=== PATIENT | male | born 1995 ===

== ENCOUNTER 2020-02-23 02:13 | Emergency (ER) | payer OTHER ==
[~2020-02-23] VITALS: Ht 188 cm; Wt 78.0 kg
--- NOTE | 2020-02-23 02:30 | NUR ---
assumed care of pt. pt BIB sister for medical clearance. pt sister states that pt is unable to care for self. she reports that pt is schizophrenic and that he has been off of his meds for over 2 months. pt was living in [place] and was kicked out of his shelter or destruction of property. pt sister states that [facility] and wants him to be evaluated for mental health placement. pt is alert and oriented. know the day and date. is cooperative. pt has a hx of visual and auditory hallucinations, but denies having them at thei time. however pt is talking and laughing to himself intermittently. pt has numerous scabs on both hands and forearms, and states that he has a hx of cutting. pt denies being actively suicidal at this time but admits to previous SI. pt is ambulatory and in no apparent resp distress. denies any other injuries
--- NOTE | 2020-02-23 02:50 | NUR ---
pt ambulated to BR for urine sample
--- NOTE | 2020-02-23 03:00 | NUR ---
lab at bedside to draw
[2020-02-23 03:13] LABS: MICROSCOPIC NOT IND
[2020-02-23 03:20] LABS: BASOPHILS # (AUTO) 0.03 x10^3/uL (0-0.1); BASOPHILS % (AUTO) 0 % (0-1); EOSINOPHILS # (AUTO) 0.26 x10^3/uL (0-0.4); EOSINOPHILS % (AUTO) 3 % (1-7); LYMPHOCYTES # (AUTO) 2.57 x10^3/uL (1-3.4); LYMPHOCYTES % (AUTO) 25 % (22-44); MD NO; MEAN CORPUSCULAR HEMOGLOBIN 30.9 pg (27.5-34.5); MEAN CORPUSCULAR HGB CONC 33.1 g/dL (33.2-36.2); MEAN CORPUSCULAR VOLUME 93.4 fL (81-97); MEAN PLATELET VOLUME 8.5 fL (7.4-10.4); MONOCYTES # (AUTO) 0.76 x10^3/uL (0.2-0.8); MONOCYTES % (AUTO) 8 % (2-9); NEUTROPHILS # (AUTO) 6.56 x10^3/uL (1.8-6.8); NEUTROPHILS % (AUTO) 65 % (42-75); PLATELET COUNT 239 x10^3/uL (130-400); RED BLOOD COUNT 4.53 x10^6/uL (4.38-5.82); RED CELL DISTRIBUTION WIDTH 13.6 % (9.4-14.8)
[2020-02-23 03:24] LABS: AMPHETAMINE SCREEN, URINE Negative (Negative); BARBITURATE SCREEN, URINE Negative (Negative); BENZODIAZEPINE SCREEN, URINE Negative (Negative); CANNABINOID SCREEN, URINE Negative (Negative); COCAINE SCREEN, URINE Negative (Negative); METHADONE SCREEN, URINE Negative (Negative); OPIATE SCREEN, URINE Negative (Negative)
--- NOTE | 2020-02-23 03:30 | NUR ---
per Norma WILLETT, pt to be placed on a hold for inability to care for self. pt undressed completely and placed in gown. all beolongings placed into bacg, labeled and secured. pt moved from room 15 to room 3. room secured and sitter present for safety. report to Debra MAN
[2020-02-23 03:32] LABS: ALBUMIN 3.5 g/dL (3.4-5.0); CALCIUM 8.6 mg/dL (8.5-10.1); CHLORIDE 105 mmol/L (98-107); CREATININE 0.75 mg/dL (0.7-1.3)
[2020-02-23 03:33] LABS: SALICYLATE LEVEL < 1.7 mg/dL (2.8-20.0)
[2020-02-23 03:36] LABS: ANION GAP 7 mmol/L (5-15)
--- NOTE | 2020-02-23 03:44 | NUR ---
PT LAYING IN BED, CALL LIGHT IN REACH WATCHING TV, RESPIRATIONS EVEN AND UNLABORED. BEDRAILS UP X2, IN VIEW OF SITTER, ROOM SECURE.
--- NOTE | 2020-02-23 06:52 | NUR ---
Took report from Debra Hirsch RN, assume care at this time.
--- NOTE | 2020-02-23 07:21 | NUR ---
Room is safe and secure with sitter outside room. Pt in hospital bed sleeping with even RR, calm. ED diet tray ordered.
--- NOTE | 2020-02-23 10:54 | NUR ---
PT REQUESTING TO GO OUTSIDE AND SMOKE, OFFERED AN NICOTINE PATCH. PT REFUSED A PATCH AT THIS TIME. ED DIET TRAY ORDERED.
--- NOTE | 2020-02-23 11:43 | NUR ---
TASK RN: PT RESTING ON HALLEY HUGHES, ROOM SECURED FOR SAFETY, SITTER OUTSIDE OF ROOM FOR SAFETY WATCH.
[2020-02-23] MEDS ORDERED: OLANZAPINE 5 MG TABLET PO SCH (13:00)
[2020-02-23] MEDS ORDERED: OLANZAPINE 5 MG TABLET ONE (14:17)
--- NOTE | 2020-02-23 14:19 | NUR ---
GAVE PT MORE JUICE PER REQUEST, MEDS PER EMAR. HAS NO REQUESTS AT THIS TIME. ROOM IS SAFE AND SECURE.
--- NOTE | 2020-02-23 14:31 | NUR ---
PACKET FAXED [facility] AND [facility]
--- NOTE | 2020-02-23 16:04 | NUR ---
PT SLEEPING WITH EVEN RR, NAD. ROOM IS SAFE AND SECURE.
--- NOTE | 2020-02-23 16:19 | NUR ---
DENIED BY RB DUE TO INSURANCE
[2020-02-23] MEDS ORDERED: NICOTINE 21 MG/24 HR PATCH.TD24 ONE (18:22)
[2020-02-23] MEDS ORDERED: NICOTINE 21 MG/24 HR PATCH.TD24 TD ONE (19:00)
--- NOTE | 2020-02-23 19:02 | NUR ---
Bedside report from Pipe rn. This rn to assume care of pt. Roller doors in place. Sitter in hallway. No immediate needs for pt. Pt asking if he will be able to go back to a prison after done w/ treatment.
--- NOTE | 2020-02-23 20:09 | NUR ---
Pt given juice per request.
--- NOTE | 2020-02-23 20:51 | NUR ---
Pt given water and reoriented o L2K process fo the fourth time since on shift.
--- NOTE | 2020-02-23 21:32 | NUR ---
Pt requesting night time meds to help sleep. Md notified. Awaiting further orders.
--- NOTE | 2020-02-23 22:38 | NUR ---
Pt resting comfortably. NADN. Watching television. No immediate needs.
[2020-02-23] MEDS ORDERED: LORazepam 1MG TABLET ONE (23:26)
[2020-02-23] MEDS ORDERED: LORazepam 1MG TABLET PO ONE (23:30)
--- NOTE | 2020-02-23 23:40 | NUR ---
Pt offered hospital bed, refused. "i just want to sleep."
--- NOTE | 2020-02-24 01:04 | NUR ---
Pt sleeping comfortably. Rr even and unlabored. HALLEY. Sitter remains in hallway.
--- NOTE | 2020-02-24 01:51 | NUR ---
Pt sleeping comfortably. Rr even and unlabored. HALLEY. Sitter remains in hallway.
--- NOTE | 2020-02-24 05:09 | NUR ---
Pt sleeping comfortably. Rr even and unlabored. HALLEY. Sitter remains in hallway.
--- NOTE | 2020-02-24 05:41 | NUR ---
Hospital bed requested.
--- NOTE | 2020-02-24 06:18 | NUR ---
Pt sleeping comfortably. Rr even and unlabored. HALLEY. Sitter remains in hallway.
--- NOTE | 2020-02-24 06:55 | NUR ---
RECEIVED REPORT FROM KIA. PT CALMLY SLEEPING ON GURNEY, NAD WITH EQUAL CHEST RISE/FALL, NO NEEDS AT THIS TIME, PT REMAINS IN SAFE ENVIRONMENT, SITTER IN VIEW.
--- NOTE | 2020-02-24 08:01 | NUR ---
PT CONTINUES TO CALMLY SLEEP ON GURNEY, NAD WITH EQUAL CHEST RISE/FALL, NO NEEDS AT THIS TIME, PT REMAINS IN SAFE ENVIRONMENT, SITTER IN VIEW.
[2020-02-24 08:31] VITALS: BP 112/66
--- NOTE | 2020-02-24 08:31 | NUR ---
BREAKFAST TRAY GIVEN
--- NOTE | 2020-02-24 08:59 | NUR ---
BREAK RN: PT RESTING ON ELLEN. HALLEY. SITTER REMAINS AT BEDSIDE. ROOM REMAINS SECURE.
--- NOTE | 2020-02-24 10:03 | NUR ---
PT ATE BREAKFAST, LAYING ON GURNEY AWAKE & TALKING TO SELF, DENIES AH/VH- "I'LL LET YOU KNOW IF I'M HALLUCINATING, SOMETIMES I JUST NEED TO TALK TO MYSELF", RESPONDS APPROP TO STAFF, NAD, COMFORT MEASURES PROVIDED, PT REMAINS IN SAFE ENVIRONMENT, SITTER IN VIEW.
--- NOTE | 2020-02-24 10:13 | NUR ---
MARGARET ([facility]) [facility] ONLY COVERS SERVICES FOR [facility], PT RESIDES IN [place], RN NOTIFIED FOR SW FOLLOW-UP.
--- NOTE | 2020-02-24 10:15 | NUR ---
THROUGHPUT RN: [facility] UNABLE TO ACCEPT AT THIS TIME, INSURANCE REQUIRES SPECIFIC APPROVAL LETTER, CONTACT IN PROGRESS TO OBTAIN PER [facility] STAFF. SW NOTIFIED OF STATUS. AWAITING [facility] ACCEPTANCE OR DENIAL.
--- NOTE | 2020-02-24 11:02 | NUR ---
PT PACING & BECOMING MORE RESTLESS & AGITATED, CONTINUES TO TALK TO SELF WITH FORCEFUL CONVERSATION, STARTED PUNCHING THE WALL REQUIRING REDIRECTION WHICH WAS HELPFUL ENOUGH TO CEASE THE PUNCHING BUT PT STILL AGITATED WHEN VERBALIZING WITH STAFF, PT REQUESTING TO SMOKE A CIGARETTE BUT BECAME MORE FRUSTRATED WHEN EDUCATED ON FACILITY SMOKING POLICY- PT REFUSED NICOTINE PATCH, NAD, REFUSED ANY NEEDS, PT REMAINS IN SAFE ENVIRONMENT, SITTER IN VIEW. DR WARNER NOTIFIED.
[2020-02-24] MEDS ORDERED: HALOPERIDOL 5 MG/ML ONE (11:19)
--- NOTE | 2020-02-24 11:22 | NUR ---
THROUGHPUT RN: [facility] ACCEPTED PT AT THIS TIME 1122, DR. HERNANDEZ ACCEPTING. AMOS RN TO GET REPORT FROM PRIMARY RN RAMSEY
--- NOTE | 2020-02-24 11:25 | NUR ---
REPORT GIVEN TO AMOS ([facility]) FOR 1230 TRANSPORT.
[2020-02-24] MEDS ORDERED: HALOPERIDOL 5 MG/ML IM ONE (11:30)
--- NOTE | 2020-02-24 11:30 | NUR ---
PT CONTINUES TO PACE & STAND AT DOORWAY, PT REDIRECTED & AGREEABLE TO STAYING IN ROOM WITH DOOR CLOSED BUT KEPT TRYING TO CLOSE CURTAINS. THIS RN EXPLAINED REASON FOR SAFETY PRECAUTIONS & POC WITH AM, PT AGREEABLE TO TRY TO REMAIN CALMER WHILE AWAITING TRANSPORT.
--- NOTE | 2020-02-24 11:46 | NUR ---
THROUGHPUT RN: [facility]/AMBULANCE DISPATCH CONTACTED REGARDING PT TRANSPORT TO [facility] (PT ON 1999), SPOKE TO JUAN PABLO AT [facility], ETA 1230 FOR TRANSPORT. PRIMARY RN RAMSEY UPDATED, AWARE.
--- NOTE | 2020-02-24 12:01 | NUR ---
LUNCH TRAY GIVEN, PT UPRIGHT ON GURNEY AWAKE, RESTLESS BUT COOPERATIVE,AWAITING TRANSPORT TO [facility], RESPONDS APPROP TO STAFF, NAD, COMFORT MEASURES PROVIDED, PT REMAINS IN SAFE ENVIRONMENT, SITTER IN VIEW.
--- NOTE | 2020-02-24 13:07 | NUR ---
TASK RN. PT TRANSFERED WITH [facility] TO [facility]. PT HAS ALL OWN BELONGINGS UPON D/C. REPORT GIVEN TO [facility] MEDIC.
== END 2020-02-24 13:12 ==
LOC: ED 09:18
DX: F22 Delusional disorders (principal); F32.0 Major depressive disorder, single episode, mild; F20.89 Other schizophrenia
CPT/HCPCS: 36415; 80048; 80307; 81003; 82040; 85025; 99285